=== PATIENT | male | born 1990 | race Caucasian/White ===

== ENCOUNTER 2016-11-20 13:32 | Emergency (ER) | payer SELFPAY ==
[2016-11-20] MEDS ORDERED: Sodium Chloride 0.9% 2.5 ML Syringe FLUSH PRN (14:08)
[2016-11-20] MEDS ORDERED: Sodium Chloride 0.9% 10 ML Syringe FLUSH PRN (14:08)
[2016-11-20] MEDS ORDERED: Sodium Chloride 0.9% 1,000 ML IV ONE (14:08)
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
[2016-11-20 14:35] LABS: SODIUM,NA 146 mmol/L (136-146)
--- NOTE | 2016-11-20 14:42 | PCM.SN ---
- Free Text/Narrative Note: Called for trauma code. I was present when pt arrived. On arrival pt has a chemo airway in place with CPR in progress by EMS. Chemo airway was leaking, head stabilized by Rheanda RT, cuff was deflated, DL with MAC 4 yielded grade II airway with copious blood in the airway; blood was suctioned out, 7.5 cuffed ETT was placed +BBS and + EtCO2. CXR ordered and was pending. Dr. Jo and Dr. Beasley were present throughout all events as well.
[2016-11-20 14:55] LABS: CHLORIDE,CL 120 mmol/L (98-110)
[2016-11-20] MEDS ORDERED: Sodium Chloride 0.9% 3,000 ML IV ONE (15:13)
[2016-11-20] MEDS ORDERED: EPINEPHrine 1:10,000 1 MG/10 ML Syringe IV ONE (16:36)
[2016-11-20 17:11] VITALS: BP 135/75
--- NOTE | 2016-11-20 18:12 | CONS ---
DATE OF CONSULTATION: DATE OF : 1990 PRIMARY CARE PHYSICIAN: None PCP NO DICTATION LIANS / MODL /[id number]
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
--- NOTE | 2016-11-21 09:56 | OR ---
SURGEON: Chris Beasley MD DATE OF PROCEDURE: 11/20/2016 PREOPERATIVE DIAGNOSES: 1. Trauma, possible pneumothorax, and first is placement of needle decompression on the right chest, did not hear any air rushing out sound. 2. Placement of a 32 Maltese chest tube in the left chest and again, did not hear air key out. PROCEDURE IN DETAIL: The procedure was done in the trauma bay while CPR was ongoing. First, 12- gauge needle was inserted in the second intercostal space in the midclavicular line under sterile condition and did not hear any air gushing out. The left chest was performed by Dr. Maylin Jo, please refer to ER note for details. At some point, we decided to insert a chest tube as needle decompression was accomplished, and procedure performed for the chest tube on the left side while the right side was performed by Dr. Chou. Under sterile condition, a skin incision was made on the nipple line on the midaxillary line and followed by using a Amber clamp to go through the muscle and pleural cavity was entered, and a Maltese 32 chest tube was inserted and anchored to the skin with 0 silk. Upon entering the pleural space, there was no gush of air coming out and there was not even steam, and pleural catheter was confirmed by finger insertion first and followed by placement of chest tube which was anchored to the skin and followed by suction. Chesttube was then connected to water chamber 20cm suction, there was no air leak. Dr. Beasley was present for the whole procedure. MICAELA / ZORA /[id number] BIJAN
--- NOTE | 2016-11-21 18:41 | CR ---
EXAM DATE: 11/20/16 PATIENT'S AGE: 26 Patient: NUNU RUEDA Facility: [place], [place] Site . Site : 1990 Study: XRay Chest [id number] 2:17:00 PM Ordering Physician: Sandro Carlisle Final Report: CHEST 1 VIEW AP INDICATION: Trauma IMPRESSION: Endotracheal tube placement 3.0 cm above melva. Short catheters are projected over the upper lung emmanuel bilaterally. Uncertain whether this is for venous access. No obvious pneumothorax on the frontal view. Cardiomediastinal silhouette is normal in configuration and the lungs appear clear. No grossly displaced rib fractures visualized in the chest wall. Dictated by Abhishek Fung MD @ Nov 20 2016 2:27PM (Electronic Signature) Report Signed by Proxy and Original Signed Document filed in the Medical Record. BIJAN
--- NOTE | 2016-11-22 18:34 | PCM.PRNOTE ---
- Free Text/Narrative Note: bedside echo was performed on 11/20/2016 No ECG was connected, very limited echocardiogram was done, only one view showed possible hyperdynamic LV with very small LV cavity, however, it was also forshorten. The other views were unable to visualize the LV cavity, or myocardial border well. No pericardial fluid was appreciated on limited views.
--- NOTE | 2016-11-23 14:08 | PCM.SN ---
- Free Text/Narrative Note: I scanned through the ED note. Noted error. I did not perform FAST or US with tech. That was an error.
== END 2016-11-20 15:30 | disposition expired ==
LOC: MERGE 13:32 → MW.ED 13:32
DX: I46.8 Cardiac arrest due to other underlying condition (principal); S27.0XXA Traumatic pneumothorax, initial encounter; S82.92XA Unspecified fracture of left lower leg, initial encounter for closed fracture; S82.91XA Unspecified fracture of right lower leg, initial encounter for closed fracture; S42.301A Unspecified fracture of shaft of humerus, right arm, initial encounter for closed fracture; V89.2XXA Person injured in unspecified motor-vehicle accident, traffic, initial encounter
CPT/HCPCS: 36415; 36430; 71010; 80053; 84484; 85025; 85610; 86850; 86900; 86901; 86920; 86921; 86922; 92950; 93307; 99291; G0390; G0480; J0171; P9016; 99285